=== PATIENT | male | born 1965 | race Caucasian/White ===

== ENCOUNTER 2016-10-11 11:15 | Outpatient (RCR) | payer BC | END 2016-11-04 | disposition home or self-care (01) | LOC: PTY 11:15 | DX: S93.602A Unspecified sprain of left foot, initial encounter (principal); M25.372 Other instability, left ankle; M76.72 Peroneal tendinitis, left leg; X58.XXXA Exposure to other specified factors, initial encounter; Y92.9 Unspecified place or not applicable; Y99.8 Other external cause status ==

== ENCOUNTER 2016-11-07 08:55 | Outpatient (RCR) | payer BC | END 2016-12-05 | disposition home or self-care (01) | LOC: PTY 08:55 | DX: S93.602D Unspecified sprain of left foot, subsequent encounter (principal); M25.372 Other instability, left ankle; M76.72 Peroneal tendinitis, left leg ==

== ENCOUNTER 2016-12-07 10:10 | Outpatient (RCR) | payer BC | END 2017-01-04 | disposition home or self-care (01) | LOC: PTY 10:10 | DX: S93.602D Unspecified sprain of left foot, subsequent encounter (principal); M25.372 Other instability, left ankle; M76.72 Peroneal tendinitis, left leg ==